=== PATIENT | male | born 1990 | race Caucasian/White ===

== ENCOUNTER 2017-04-16 08:18 | Emergency (ER) | payer MEDICAID ==
[~2017-04-16] VITALS: Ht 170.2 cm; Wt 68.0 kg
[2017-04-16] MEDS ORDERED: PROMETHAZINE HCL 25 MG/ML 1ML ONE (08:47)
[2017-04-16] MEDS ORDERED: PROMETHAZINE HCL 25 MG/ML 1ML IV ONE (09:00)
[2017-04-16] MEDS ORDERED: SODIUM CHLORIDE 0.9% 1,000 ML IV ONE ×2 (09:11→11:41)
[2017-04-16 09:20] LABS: Urine Bacteria NONE SEEN /hpf (None Seen); Urine Blood Negative /uL (Negative); Urine Mucus FEW (None Seen); Urine Specific Gravity 1.026 (1.001-1.035); Urine WBC 2 /hpf (0 - 3)
[2017-04-16 09:30] LABS: Basophils # (auto) 0.1 uL; Eosinophils # (auto) 0.1 uL; Eosinophils % (auto) 0.3 % (0.0-7.0); Monocytes # (auto) 1.1 uL
[2017-04-16 09:32] LABS: Basophils % (auto) 0.4 % (0.0-2.0); Hematocrit 52.5 % (41.0-53.0); Hemoglobin 17.8 g/dL (13.5-17.5); Lymphocytes # (auto) 0.8 uL; Lymphocytes % (auto) 3.8 % (10.0-50.0); Mean Corpuscular Hemoglobin 31.1 pg (28.0-32.0); Mean Corpuscular Hgb Conc. 33.9 g/dL (32.0-36.0); Mean Corpuscular Volume 91.6 fL (80.0-100.0); Monocytes % (auto) 4.8 % (0.0-12.0); Neutrophils # (auto) 19.9 uL; Neutrophils % (auto) 90.7 % (37.0-80.0); Platelet Count (auto) 325 10^3/uL (140-450); Red Blood Cells 5.72 10^6/uL (4.5-5.90); Red Cell Distribution Width 12.8 % (11.8-14.3); White Blood Cell 21.9 10^3/uL (4.4-10.8)
[2017-04-16 09:39] LABS: Alcohol, Urine < 3.0 mg/dL (0-5); Amphetamine Screen, Urine NEGATIVE (NEGATIVE); Barbiturate Scree,Urine NEGATIVE (NEGATIVE); Benzodiazephine Screen, Urine POSITIVE (NEGATIVE); Cannabinoid Screen, Urine POSITIVE (NEGATIVE); Cocaine Screen, Urine NEGATIVE (NEGATIVE); Opiate Scree,Urine NEGATIVE (NEGATIVE); Phencyclidine Screen, Urine NEGATIVE (NEGATIVE)
[2017-04-16 09:49] LABS: Alanine Aminotransferase 36 U/L (16-61); Anion Gap 9 (5-15); Aspartate Aminotransferase 27 U/L (15-37); BUN/Creatinine Ratio 9.1; Blood Alcohol < 3.0 mg/dL (0-5); Blood Urea Nitrogen 11 mg/dL (7-18); Carbon Dioxide 25 mmol/L (21-32); Chloride 101 mmol/L (98-107); GFR African American 94 mL/min; GFR Non-African American 78 mL/min; Glucose 184 mg/dL (74-106); Potassium 3.9 mmol/L (3.5-5.1); Sodium 135 mmol/L (136-145)
[2017-04-16 09:51] LABS: Alkaline Phosphatase 75 U/L (45-117); Bilirubin, Total 0.8 mg/dL (0.2-1.0)
[2017-04-16] MEDS ORDERED: cefTRIAXone 1GM/10ml IVPUSH 10 ML IV ONE (10:45)
[2017-04-16] MEDS ORDERED: ONDANSETRON HCL 4 MG/2 ML VIAL IV ONE (12:00)
[2017-04-16 13:07] VITALS: BP 115/59
== END 2017-04-16 13:14 | disposition home or self-care (01) ==
LOC: ER 08:18
DX: R10.13 Epigastric pain (principal); R11.2 Nausea with vomiting, unspecified; F17.210 Nicotine dependence, cigarettes, uncomplicated
CPT/HCPCS: 36415; 74176; 80053; 80307; 80320; 81001; 85025; 96361; 96374; 96375; 99285; J2405; J2550; J7030